=== PATIENT | female | born 2005 | race Caucasian/White ===

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

== ENCOUNTER 2024-08-28 18:22 | Observation (INO) | payer OTHER ==
[2024-08-28 19:45] VITALS: RESP 20
[2024-08-28 20:23] LABS: Absolute Neutrophil Ct (ANC) 5.44 x10^3/uL (1.56-6.13); BASOPHIL % 0.2 % (0.1-1.2); Basophil (Absolute #) 0.02 x10^3/uL (0.01-0.08); Eosinophil (Absolute #) 0.08 x10^3/uL (0.04-0.36); Hemoglobin 12.6 g/dL (11.2-15.7); IMMATURE GRAN # 0.04 x10^3u/L (0.001-0.031); IMMATURE GRAN % 0.5 % (0.001-0.429); Lymphocyte (Absolute #) 2.13 x10^3/uL (1.18-3.74); Lymphocytes % 26.6 % (19.3-51.7); Mean Cell Volume 92.7 fL (79.4-94.8); Mean Corpuscular Hemoglobin 30.7 pg (25.6-32.2); Mean Corpuscular Hgb Concent. 33.2 g/dL (32.2-35.5); Monocyte (Absolute #) 0.31 x10^3/uL (0.24-0.86); Monocytes % 3.9 % (4.7-12.5); Neutrophil % 67.8 % (34.0-71.1); Platelet Count 193 x10^3/uL (182-369); Red Cell Distribution Width 14.6 % (11.7-14.4)
[2024-08-28 20:36] LABS: ALBUMIN 3.1 g/dL (3.5-5.0); ANION GAP 11.4 MEQ/L (5-15); BILIRUBIN,TOTAL 0.3 mg/dL (0.2-1.3); Calcium 8.4 mg/dL (8.4-10.2); Creatinine 1 0.59 mg/dL (0.52-1.04); EST GLOMERULAR FILTRATION RATE 131.4 ML/MIN; Potassium 3.6 mmol/L (3.5-5.1); Total Protein 6.3 g/dL (6.3-8.2)
[2024-08-28 20:37] LABS: Creatinine, Urine Random 242.7 mg/dl; Protein Creatinine Ratio, Ran. 0.17 mg/mg (0.0-0.15)
[2024-08-28 20:44] LABS: Appearance Turbid (Clear); Bacteria Moderate /HPF (None Seen); Bilirubin Negative (Negative); Blood Small (Negative); Epithelial Cells Moderate /HPF (None Seen); Glucose, Urine Negative (Negative); Ketones Negative (Negative); Leukocyte Esterase Large (Negative); Nitrite Negative (Negative); Protein,Urine Dip 100 (Negative); Specific Gravity 1.025 (1.005-1.030); Trichomonas Moderate /HPF (None Seen); WBC >100 /HPF (0-5)
--- NOTE | 2024-08-28 20:49 | PCM.HP ---
History of Present Illness - Chief Complaint Chief Complaint: contractions History of Present Illness: is a 19 year old female at 39 4/7 wks EGA arrived to labor and delivery c/o contractions. She was having some irregular contractions initially but none now, she denies any contraction pain, no bleeding or leakage of fluid. - Review of Systems Constitutional: No Fever, No Chills Respiratory: No Cough, No Short Of Breath Abdominal/Gastrointestinal: Other (contractions resolved since arrival) Genitourinary Symptoms: No Dysuria Skin: No Rash Medications & Allergies Home Medications: Home Medication List No Reportable Medications [No Reported Medications] 08/28/24 [History Confirmed 08/28/24] Allergies/Adverse Reactions: Allergies Allergy/AdvReac Type Severity Reaction Status Date / Time No Known Drug Allergies Allergy Verified 08/28/24 19:44 - Past Medical History Past Medical History: No Neurological History: No Pertinent History ENT History: No Pertinent History Cardiac History: No Pertinent History Respiratory History: No Pertinent History Endocrine Medical History: No Pertinent History Musculoskelatal History: No Pertinent History GI Medical History: No Pertinent History History: No Pertinent History Pyscho-Social History: No Pertinent History Reproductive Disorders: No Pertinent History - Past Surgical History Past Surgical History: No Neuro Surgical History: No Pertinent History Cardiac History: No Pertinent History Respiratory Surgery: No Pertinent History GI Surgical History: No Pertinent History Genitourinary Surgical Hx: No Pertinent History Musculskeletal Surgical Hx: No Pertinent History Female Surgical History: No Pertinent History - Social History Smoking Status: Current every day smoker How long have you smoked: 3 years Exposure to second hand smoke: No Alcohol: None Drug Use: none - Social Determinants of Health Will the patient participate in the screening: Yes Do you worry about a steady place to live?: No Do you have any problems with any of the following?: No known problems In the past 12 months,have you had to go without utilities?: No Have you or anyone in your house had to go without enough: No Transportation Issues: No Has anyone in your support network made you feel unsafe?: No Does the patient want assistance with any of the above?: No - Physical Exam Vital Signs: Vital Signs - 24 hr Temp Pulse Resp BP BP Pulse Ox 08/28/24 19:28 97.6 F 103 H 20 153/109 99 08/28/24 18:56 85 135/95 General Appearance: no apparent distress, alert Neurologic Exam: alert, oriented x 3 Respiratory Exam: normal breath sounds, lungs clear, No respiratory distress Cardiovascular Exam: regular rate/rhythm, normal heart sounds, normal peripheral pulses Gastrointestinal/Abdomen Exam: soft, normal bowel sounds, other (gravid abdomen, SVE thick high and closed. patient very anxious and uncomfortable during exam. FHR 130's cat [place] quiet), No tenderness, No mass Skin Exam: normal color, warm, dry, No rash Results - Labs Lab/Micro Results: Lab Results-Last 24 Hours 08/28/24 08/28/24 08/28/24 Range/Units 20:20 20:20 20:20 WBC 8.0 (3.98-10.04) x10^3/uL RBC 4.10 (3.93-5.22) x10^6/uL Hgb 12.6 (11.2-15.7) g/dL Hct 38.0 (34.1-44.9) % MCV 92.7 (79.4-94.8) fL MCH 30.7 (25.6-32.2) pg MCHC 33.2 (32.2-35.5) g/dL RDW 14.6 H (11.7-14.4) % Plt Count 193 (182-369) x10^3/uL MPV 11.0 (9.4-12.3) fL Gran % 67.8 (34.0-71.1) % Immature Gran % (Auto) 0.5 H (0.001-0.429) % Nucleat RBC Rel Count 0.0 (0.00-0.2) % Eos # (Auto) 0.08 (0.04-0.36) x10^3/uL Immature Gran # (Auto) 0.04 H (0.001-0.031) x10^3u/L Absolute Lymphs (auto) 2.13 (1.18-3.74) x10^3/uL Absolute Monos (auto) 0.31 (0.24-0.86) x10^3/uL Absolute Nucleated RBC 0.00 (0.00-0.012) x10^3u/L Lymphocytes % 26.6 (19.3-51.7) % Monocytes % 3.9 L (4.7-12.5) % Eosinophils % 1.0 (0.7-5.8) % Basophils % 0.2 (0.1-1.2) % Absolute Granulocytes 5.44 (1.56-6.13) x10^3/uL Basophils # 0.02 (0.01-0.08) x10^3/uL Sodium 137 (135-145) mmol/L Potassium 3.6 (3.5-5.1) mmol/L Chloride 112 H (98-107) mmol/L Carbon Dioxide 18 L (22-30) mmol/L Anion Gap 11.4 (5-15) MEQ/L BUN 12 (7-17) mg/dL Creatinine 0.59 (0.52-1.04) mg/dL Estimated GFR 131.4 ML/MIN Glucose 101 (74-106) mg/dL Calcium 8.4 (8.4-10.2) mg/dL Total Bilirubin 0.30 (0.2-1.3) mg/dL AST 30 (14-36) U/L ALT 22 (0-35) U/L Alkaline Phosphatase 181 H (38-126) U/L Serum Total Protein 6.3 (6.3-8.2) g/dL Albumin 3.1 L (3.5-5.0) g/dL Ur Random Creatinine 242.7 mg/dl U Random Total Protein 42.0 (<12) mg/dl U [place] Prot/Creat Ratio 0.17 H (0.0-0.15) mg/mg Assessment/Plan (1) Term Current Visit: Yes Status: Acute Code(s): Z34.90 - ENCNTR FOR SUPRVSN OF NORMAL , UNSP, UNSP TRIMESTER (2) Elevated blood pressure reading Current Visit: No Status: Acute Assessment & Plan: elevated bp is not consistent, seems related to anxiety and cervical check. urine protein:creatinine ratio negative and HELLP labs are normal. discussed possibly inducing labor before cervically check but patient refuses induction after discussion and I stressed the need for her to f/u in office on Sunday. Code(s): R03.0 - ELEVATED BLOOD-PRESSURE READING, W/O DIAGNOSIS OF HTN (3) Trichomonal vaginitis during Current Visit: Yes Status: Acute Assessment & Plan: plan to treat with flagyl Code(s): O23.599 - INFECTION OTH PRT GENITAL TRACT IN , UNSP TRIMESTER; A59.01 - TRICHOMONAL VULVOVAGINITIS
--- NOTE | 2024-08-28 20:53 | PCM.DCORD ---
- Discharge Disposition: Home, Self-Care Condition: Stable Prescriptions: New metroNIDAZOLE [Metronidazole] 500 mg PO BID #14 tablet Follow up with: TELLY CANALES MD [Primary Care Provider] - 09/01/24 3:15 pm
[2024-08-28] MEDS ORDERED: Flagyl 500 MG ONE (20:57)
[2024-08-28] MEDS: Flagyl 500 MG PO ONE (21:00)
[2024-08-28 21:03] LABS: Barbiturate,Urine NEGATIVE (NEGATIVE); Benzodiazepine,Urine NEGATIVE (NEGATIVE); Cocaine,Urine NEGATIVE (NEGATIVE); Methadone,Urine NEGATIVE (NEGATIVE); Opiate,Urine NEGATIVE (NEGATIVE); PCP,Urine NEGATIVE (NEGATIVE); THC,Urine NEGATIVE (NEGATIVE)
[2024-08-28 21:07] LABS: Amphetamine,Urine NEGATIVE (NEGATIVE)
[2024-08-28 22:44] VITALS: BP 114/72; PULSE 89
[2024-08-28 22:55] VITALS: TEMP 98.3; O2SAT 100
== END 2024-08-28 23:06 | disposition home or self-care (01) ==
LOC: UNDOADMOB 18:22 → OB 18:22 → MED SURG 18:22
PROVIDERS: ADMIT Family Medicine; ATTEND Family Medicine
DX: Z34.83 Encounter for supervision of other normal pregnancy, third trimester (principal); Z3A.39 39 weeks gestation of pregnancy
CPT/HCPCS: 36415; 80053; 80307; 81001; 82570; 84156; 85025; 87086; G0378; G0379; A9270-GY

== ENCOUNTER 2024-09-02 05:52 | Inpatient (IN) | payer OTHER ==
[2024-09-02 06:34] LABS: Appearance Cloudy (Clear); Bacteria Few /HPF (None Seen); Bilirubin Negative (Negative); Blood Small (Negative); Epithelial Cells Few /HPF (None Seen); Glucose, Urine Negative (Negative); Hyaline Casts NONE SEEN /LPF (0-2); Ketones Negative (Negative); Leukocyte Esterase Moderate (Negative); Nitrite Negative (Negative); Ph 6.5 (4.6-8.0); Protein,Urine Dip 100 (Negative); RBC 21-50 /HPF (0-5); WBC 51-100 /HPF (0-5)
[2024-09-02] MEDS ORDERED: Ephedrine Sulfate 50 MG/ML IV PRN (06:40)
[2024-09-02] MEDS ORDERED: Lactated Ringers 1,000 ML IV ONE (06:40)
[2024-09-02] MEDS ORDERED: Zofran 4 MG/2 ML VIAL IV PRN (06:41)
[2024-09-02] MEDS ORDERED: XYLOCAINE 1% HCL 20 ML MDV IJ PRN (06:41)
[2024-09-02] MEDS ORDERED: FENTANYL 2 MCG-BUPIV 0.125%-NS 250 ML Epidur 250 ML EPIDURAL SCH (06:45)
[2024-09-02 06:47] LABS: Amphetamine,Urine NEGATIVE (NEGATIVE); Barbiturate,Urine NEGATIVE (NEGATIVE); Benzodiazepine,Urine NEGATIVE (NEGATIVE); Cocaine,Urine NEGATIVE (NEGATIVE); Methadone,Urine NEGATIVE (NEGATIVE); Opiate,Urine NEGATIVE (NEGATIVE); PCP,Urine NEGATIVE (NEGATIVE); THC,Urine NEGATIVE (NEGATIVE)
[2024-09-02 06:59] LABS: Absolute Neutrophil Ct (ANC) 9.33 x10^3/uL (1.56-6.13); BASOPHIL % 0.2 % (0.1-1.2); Basophil (Absolute #) 0.02 x10^3/uL (0.01-0.08); Eosinophil % 0.2 % (0.7-5.8); Eosinophil (Absolute #) 0.03 x10^3/uL (0.04-0.36); Hematocrit 37.7 % (34.1-44.9); Hemoglobin 12.9 g/dL (11.2-15.7); IMMATURE GRAN # 0.07 x10^3u/L (0.001-0.031); IMMATURE GRAN % 0.5 % (0.001-0.429); Lymphocyte (Absolute #) 3.26 x10^3/uL (1.18-3.74); Lymphocytes % 24.5 % (19.3-51.7); Mean Corpuscular Hemoglobin 30.8 pg (25.6-32.2); Mean Corpuscular Hgb Concent. 34.2 g/dL (32.2-35.5); Mean Platelet Volume 11.3 fL (9.4-12.3); Monocyte (Absolute #) 0.57 x10^3/uL (0.24-0.86); Monocytes % 4.3 % (4.7-12.5); Neutrophil % 70.3 % (34.0-71.1); Platelet Count 207 x10^3/uL (182-369); Red Blood Count 4.19 x10^6/uL (3.93-5.22); Red Cell Distribution Width 14.3 % (11.7-14.4); White Blood Count 13.3 x10^3/uL (3.98-10.04)
[2024-09-02 07:51] LABS: ABO TYPING A; Antibody Screen NEGATIVE (NEGATIVE); RH TYPING POSITIVE
[2024-09-02] MEDS ORDERED: PITOCIN 30 UNITS/ LR 500 ML 30 UNITS/500 ML PLAST..BAG IV SCH (09:00)
[2024-09-02] MEDS: Lactated Ringers 1,000 ML IV SCH (09:06)
[2024-09-02] MEDS: PITOCIN 30 UNITS/ LR 500 ML 30 UNITS/500 ML PLAST..BAG IV SCH (09:06)
[2024-09-02] MEDS: TYLENOL EXTRA STRENGTH 500 MG PO PRN (12:49)
[2024-09-02] MEDS ORDERED: Mylicon 80MG PO PRN (13:34)
[2024-09-02] MEDS: TUCKS TP PRN (15:46)
[2024-09-02] MEDS: MOTRIN 400 MG PO PRN (15:46)
[2024-09-02] MEDS: Dermoplast Spray TP PRN (15:46)
[2024-09-02] MEDS: Docusate Sodium 100 MG PO SCH (21:09)
[2024-09-03 04:16] LABS: Absolute Neutrophil Ct (ANC) 6.25 x10^3/uL (1.56-6.13); BASOPHIL % 0.3 % (0.1-1.2); Basophil (Absolute #) 0.03 x10^3/uL (0.01-0.08); Eosinophil % 1.1 % (0.7-5.8); Eosinophil (Absolute #) 0.11 x10^3/uL (0.04-0.36); Hematocrit 33.7 % (34.1-44.9); Hemoglobin 11.7 g/dL (11.2-15.7); IMMATURE GRAN # 0.05 x10^3u/L (0.001-0.031); IMMATURE GRAN % 0.5 % (0.001-0.429); Lymphocyte (Absolute #) 3.45 x10^3/uL (1.18-3.74); Mean Cell Volume 89.6 fL (79.4-94.8); Mean Corpuscular Hemoglobin 31.1 pg (25.6-32.2); Mean Corpuscular Hgb Concent. 34.7 g/dL (32.2-35.5); Mean Platelet Volume 11.5 fL (9.4-12.3); Monocyte (Absolute #) 0.56 x10^3/uL (0.24-0.86); Monocytes % 5.4 % (4.7-12.5); Neutrophil % 59.7 % (34.0-71.1); Platelet Count 206 x10^3/uL (182-369); Red Blood Count 3.76 x10^6/uL (3.93-5.22); Red Cell Distribution Width 14.7 % (11.7-14.4); White Blood Count 10.5 x10^3/uL (3.98-10.04)
[2024-09-03] MEDS: FERREX 150 PO SCH (10:47)
[2024-09-03] MEDS: Adacel Vial IM ONE (10:47)
[2024-09-03 11:35] LABS: RPR Non Reactive (Non Reactive)
[2024-09-03] MEDS: Flagyl 500 MG PO SCH (21:55)
[2024-09-04 07:10] LABS: HIV Screen 4th Generation wRfx Non Reactive (Non Reactive)
--- NOTE | 2024-09-04 08:35 | PCM.DS ---
Discharge Summary Date of Admission: 09/02/24 09:45 Admitting Physician: TELLY CANALES Consults: Consults on Case 09/02/24 17:31 Navigation ONCE Primary Care Provider: TELLY CANALES Allergies Allergies No Known Drug Allergies Allergy (Verified 08/28/24 19:44) Hospital Summary - Hospital Course Hospital Course: patient had uncomplicated vaginal delivery with no repair. bottle feeding, mild lochia and minimal pain following delivery. routine care - Vitals & Intake/Output Vital Signs: Vital Signs Temperature 97.8 F 09/04/24 05:00 Pulse Rate 97 H 09/04/24 05:00 Respiratory Rate 20 09/04/24 05:00 Blood Pressure 141/97 09/04/24 05:00 O2 Sat by Pulse Oximetry 100 09/04/24 05:00 Intake & Output: Intake & Output 09/01/24 09/02/24 09/03/24 09/04/24 11:59 11:59 11:59 11:59 Intake Total 1500 1000 Balance 1500 1000 - Lab Result Diagrams: 09/03/24 04:12 Lab Results-Last 24 Hrs: Lab Results-Last 24 Hours 09/02/24 09/03/24 Range/Units 06:50 04:12 RPR Non Reactive (Non Reactive) HIV 1&2 Ab/P24 Ag 4thGn Non Reactive (Non Reactive) Micro Results-Entire Visit: Microbiology 09/02/24 06:27 Urine Culture - Final Clean Catch Midstream MIXED IMRIAM; 3 OR MORE TYPES. NO PREDOMINANT ORGANISM. NO FURTHER WORKUP. PLEASE RESUBMIT IF CLINICALLY INDICATED. - Procedures and Test Procedures and Tests throughout Hospitalization: Therapy Orders & Screens 09/02/24 12:17 Standby ROUTINE Comment: Discharge Exam General Appearance: no apparent distress Neurologic Exam: alert, oriented x 3 Respiratory Exam: normal breath sounds, lungs clear, No respiratory distress Cardiovascular Exam: regular rate/rhythm, normal heart sounds Gastrointestinal/Abdomen Exam: soft, No tenderness, No mass Extremity Exam: normal inspection, normal range of motion Skin Exam: normal color, warm, dry Final Diagnosis/Problem List - Final Discharge Diagnosis/Problem (1) Vaginal delivery Current Visit: No Status: Acute Code(s): O80 - ENCOUNTER FOR FULL-TERM UNCOMPLICATED DELIVERY - Discharge Disposition: Home, Self-Care Condition: Stable Prescriptions: Continue metroNIDAZOLE [Metronidazole] 500 mg PO BID #14 tablet No.137/Iron/Folic Acd [ Vitamin Tablet] 1 tablet PO DAILY Discontinued Ferrous Sulfate 325 mg [Feosol 325 mg] 325 mg PO DAILY Follow up with: TELLY CANALES MD [Primary Care Provider] - 1 Week Forms: OB Discharge Instructions
[2024-09-04 11:52] VITALS: BP 131/94; PULSE 88; RESP 14; TEMP 98.5; O2SAT 99
== END 2024-09-04 16:05 | disposition home or self-care (01) | DRG 807 ==
LOC: MED SURG 05:52 → OB 08:36 → MED SURG 09:45 → OBSVTOIN 09:45
PROVIDERS: ADMIT Family Medicine; ATTEND Family Medicine
PROC: 10E0XZZ Delivery of Products of Conception, External Approach (ICD-10-PCS; principal; 2024-09-02)
DX: O80 Encounter for full-term uncomplicated delivery (principal); Z37.0 Single live birth; Z3A.40 40 weeks gestation of pregnancy
CPT/HCPCS: 36415; 80307; 81001; 81003; 82570; 84156; 85025; 86592; 86850; 86900; 86901; 87086; 87389; 90715; 94799; J2590; A9270-GY